=== PATIENT | female | born 1970 | race Two or more races ===

== ENCOUNTER 2016-08-30 12:51 | Day surgery (SDC) | payer OTHER ==
[2016-08-30] MEDS ORDERED: fentaNYL 100 MCG/2 ML INJ ONE (13:56)
[2016-08-30] MEDS ORDERED: MIDAZOLAM 2 MG/2 ML VIAL ONE (13:56)
[2016-08-30] MEDS ORDERED: FLUMAZENIL 0.5 MG/5 ML MDV IVP ONE (13:57)
[2016-08-30] MEDS ORDERED: NALOXONE HCL 0.4 MG/ML INJ ONE (13:57)
[2016-08-30 14:40] LABS: GLUCOSE 131 mg/dL (70-100)
[2016-08-30] MEDS ORDERED: IOPAMIDOL (ISOVUE-M 300) 15 ML VIAL ONE (15:49)
[2016-08-30] MEDS ORDERED: TRIAMCINOLONE ACETONIDE 200 MG/5 ML MDV IM ONE (15:49)
== END 2016-08-30 16:15 | disposition home or self-care (01) ==
LOC: FIMAGING 12:51
PROVIDERS: ATTEND Radiology Diagnostic Radiology
PROC: 3E0S33Z Introduction of Anti-inflammatory into Epidural Space, Percutaneous Approach (ICD-10-PCS; principal; 2016-08-30 15:45)
PROC: 3E0S3BZ Introduction of Anesthetic Agent into Epidural Space, Percutaneous Approach (ICD-10-PCS; principal; 2016-08-30 15:45)
DX: M54.12 Radiculopathy, cervical region (principal)
CPT/HCPCS: 82947-QW; J2250; J2310; J3010; J3301; Q9967